=== PATIENT | female | born 1975 | race Caucasian/White ===

== ENCOUNTER 2016-06-01 16:45 | Emergency (ER) | payer OTHER ==
[2016-06-01 16:51] VITALS: TEMP 98.6
--- NOTE | 2016-06-01 16:59 | EDPHY ---
H & P Stated Complaint: c/o migraine x 10 days;d/c'd from [place] yesterday for same c/o Time Seen by Provider: 06/01/16 16:57 - Personal History LMP (Females 10-55): 15-21 Days Ago Current Tetanus Diphtheria and Acellular Pertussis (TDAP): Yes - Medical/Surgical History Other PMH: migraines. ulcers. hives (?etiology) - Social History Smoking Status: Never smoked Constitutional: Initial Vital Signs Temperature (C) 37 C 06/01/16 16:45 Heart Rate 80 06/01/16 16:45 Respiratory Rate 16 06/01/16 16:45 Blood Pressure 128/74 H 06/01/16 16:45 O2 Sat (%) 97 06/01/16 16:45 O2 Delivery Mode Nasal Cannula O2 (L/minute) 2 Allergies/Adverse Reactions: prochlorperazine [From Compazine] Allergy (Intermediate, Verified 06/01/16 16:51 ) "makes me comatose" Home Medications: Medication Instructions Recorded Acyclovir [Zovirax] 800 mg PO 06/01/16 Citalopram [CeleXA] 20 mg PO 06/01/16 Cyclobenzaprine [Cyclobenzaprine 10 mg 06/01/16 HCl] Indomethacin [Indocin 25 mg (*)] 25 mg PO 06/01/16 Lisdexamfetamine Dimesylate 60 mg PO DAILY 06/01/16 [Vyvanse] Pantoprazole Sodium [Protonix 40mg 40 mg PO 06/01/16 (*)] Promethazine HCl [Phenergan 25mg 25 mg PO 06/01/16 (*)] SUMAtriptan [Imitrex 50 MG (*)] 100 mg PO 06/01/16 Sucralfate [Carafate] 1 gm PO 06/01/16 Topiramate [Topamax 100MG (*)] 100 mg PO BID 06/01/16 traZODone [traZODONE 100MG (*)] 200 mg PO 06/01/16 Medical Decision Making ED Course/Re-evaluation: CHIEF COMPLAINT: Migraine HISTORY OF PRESENT ILLNESS: The patient is a 40 y/o female, with a history of migraines, complaining of a persistent migraine over the last 10 days. Her symptoms today are the same as previous, but she has been unable to control the pain. Since onset, she has been to urgent care and the ED in [place]. She had a normal head CT during that visit. She was admitted there overnight for pain symptoms and discharged this morning on an indomethacin taper that initially improved her symptoms. But due to a recent gastric ulcer, she was unable to continue this medication. Her ulcer is thought to be secondary to recent steroid use for undiagnosed hives. She denies weakness, paresthesias, or difficulty with speech. REVIEW OF SYSTEMS: A 10 point review of systems was performed and is negative with the exception of the elements mentioned in the history of present illness. PHYSICAL EXAM: HR, BP, O2 Sat, RR. Temp noted General Appearance: Alert, well hydrated, appropriate, and non-toxic appearing. Head: Atraumatic without scalp tenderness or obvious injury Eyes: Pupils equal, round, reactive to light and accommodation, EOMI, no trauma , no injection. Ears: Clear bilaterally, no perforation, normal landmarks Nose: Atraumatic, no rhinorrhea, clear. Throat: There is no erythema or exudates, no lesions, normal tonsils, mucus membranes moist. Neck: Supple, nontender, no lymphadenopathy. Respiratory: No retractions, no distress, no wheezes, and no accessory muscle use. Lungs are clear to auscultation bilaterally. Cardiovascular: Regular rate and rhythm, no murmurs, rubs, or gallops. Good capillary refill all extremities. Gastrointestinal: Abdomen is soft, nontender, non-distended, no masses, no rebound, no guarding, no peritoneal signs. Musculoskeletal: Normal active ROM of all extremities, atraumatic. Neurological: Alert, appropriate, and interactive. The patient has normal DTRs and non-focal cranial nerves, motor, sensory, and cerebellar exam. Skin: No rashes, good turgor, no nodules on palpation. Past medical history: Migraines, gastric ulcer Past surgical history: denies Family history: noncontributory Social history: Lives in [place] DIAGNOSTICS/PROCEDURES/CRITICAL CARE TIME: I viewed the images myself on the PACS system. 1835: Procedure: Local anesthetic injections Indication: Persistent occipital headache, migraine Risks, benefits, and alternatives discussed with the patient. I prepped a sterile field along patient's posterior cervical region and injected 3cc IM Marcaine to each cervical paraspinous trapezius region. Patient tolerated the procedure well. There was no bleeding, significant pain, or other complications. DIFFERENTIAL DIAGNOSIS: The differential diagnosis for the patient's headache included but was not limited to subarachnoid hemorrhage, migraine headache, tension headache and infectious causes such as meningitis, pharyngitis and sinusitis. MEDICAL DECISION MAKING: This is a 40 y/o female, with a history of migraines, presenting today with a 10 -day history of an intractable migraine. Other than the prolonged time frame, she denies new symptoms from previous migraines. Her neuro exam is normal. Plan for symptom management and MRI studies including arterial and venous angiography to rule out other acute process. IV established. 10mg IV Reglan and 10mg IV Ketamine administered. Due to recent steroids and her gastric ulcer, we will hold on Decadron and Toradol. Reevaluated patient. Her headache has completely resolved, though she feels "loopy" from the Ketamine. Plan to continue observation. MRIs pending. Patient is complaining of an occipital headache. We will try cervical bupivacaine injection for this. 1933: MRA and MRV are negative for acute process per Dr. Prithcett, radiologist. Other studies pending. 1947: Dr. Pritchett reports remaining MRIs are negative. I discussed these results with the patient. Her symptoms are controlled well and she has "zero" headache symptoms at this time. She will be discharged with a script for Propranolol, as she is not currently using any prophylactic medication for her migraines. She should follow up with her neurologist this week. She is comfortable with this plan. Return precautions given. - Data Points Medications Given: Discontinued Medications Ketamine HCl (Ketamine) 10 mg IVP EDNOW ONE Stop: 06/01/16 17:07 Last Admin: 06/01/16 17:34 Dose: 10 mg Lorazepam (Ativan Injection) 1 mg IVP EDNOW ONE Stop: 06/01/16 17:38 Last Admin: 06/01/16 17:39 Dose: 1 mg Metoclopramide HCl (Reglan Injection) 10 mg IVP EDNOW ONE Stop: 06/01/16 17:07 Last Admin: 06/01/16 17:35 Dose: 10 mg Ondansetron HCl (Zofran) 4 mg IVP EDNOW ONE Stop: 06/01/16 17:38 Last Admin: 06/01/16 17:39 Dose: 4 mg Departure - Departure Disposition: Home, Routine, Self-Care Clinical Impression: Migraine Qualifiers: Migraine type: other Status migrainosus presence: with status migrainosus Intractability: not intractable Qualified Code(s): G43.801 - Other migraine, not intractable, with status migrainosus Condition: Good Instructions: Migraine Headache (ED) Additional Instructions: Follow up with your primary care provider or neurologist for symptoms not improved over the next 2-3 days. Return to the ED for worsening of condition. Referrals: CHIVO CALDERA [Primary Care Provider] - As per Instructions Ronny Ulloa DO [Medical Doctor] - As per Instructions Report Scribed for: Evan Laureano Report Scribed by: Maggie Lopez Date of Report: 06/01/16 Time of Report: 17:45
[2016-06-01] MEDS ORDERED: KETAMINE 100 MG/10 ML SYR IVP ONE (17:06)
[2016-06-01] MEDS ORDERED: METOCLOPRAMIDE 10 MG/2 ML VIAL IVP ONE (17:06)
[2016-06-01] MEDS ORDERED: LORazepam 2 MG/ML INJ ONE (17:24)
[2016-06-01] MEDS ORDERED: ONDANSETRON 4 MG/2 ML VIAL ONE (17:29)
[2016-06-01] MEDS ORDERED: LORazepam 2 MG/ML INJ IVP ONE (17:37)
[2016-06-01] MEDS ORDERED: ONDANSETRON 4 MG/2 ML VIAL IVP ONE (17:37)
[2016-06-01] MEDS ORDERED: GADOBUTROL 10 ML VIAL IVP ONE (19:16)
[2016-06-01 20:02] VITALS: BP 112/75; PULSE 85; RESP 16; O2SAT 97
== END 2016-06-01 20:05 | disposition home or self-care (01) ==
DX: G43.801 Other migraine, not intractable, with status migrainosus (principal)
CPT/HCPCS: 96374; A9585; J2060; J2405; J2765

== ENCOUNTER 2016-06-19 12:50 | Emergency (ER) | payer OTHER ==
[2016-06-19 13:07] VITALS: BP 122/74; TEMP 98.1
[2016-06-19] MEDS ORDERED: HALOPERIDOL LACT 5 MG/ML INJ IV ONE (13:49)
[2016-06-19] MEDS ORDERED: LORazepam 2 MG/ML INJ IVP ONE (13:49)
[2016-06-19] MEDS ORDERED: NS 1,000 ML IV ONE (13:50)
--- NOTE | 2016-06-19 13:53 | EDPHY ---
H & P Time Seen by Provider: 06/19/16 13:35 HPI/ROS: CHIEF COMPLAINT: HISTORY OF PRESENT ILLNESS: Patient was seen in the emergency department on 06/01 with MRI and MRV negative. She has a long history of migraine headaches and has a neurologist Dr. Neumann at [place]. Patient's headache this time is her typical migraine. It was slow in onset started 3 days ago. It is right-sided does not radiate not affected by light and noise. It is associated with nausea and is identical to previous migraines. She tried her usual medications including Imitrex and promethazine without resolution. Patient says Toradol does not work. Note from her neurologist reviewed which recommends trying droperidol or haloperidol and this was discussed with the patient and consented. REVIEW OF SYSTEMS: Eye: Light bothers the eyes but no double vision ENT: no sore throat or ear symptoms Cardiac: no chest pain or syncope Pulmonary: no cough or SOB Abdomen: No diarrhea or abdominal pain Musculoskeletal: no back pain Skin: no rash Neuro: HPI, no confusion or recent injury Constitutional: no fever : no urinary symptoms A comprehensive 10 point review of systems is otherwise negative aside from elements mentioned in the history of present illness. PAST MEDICAL HISTORY: History of migraine headaches. Gastric ulcer. History of hives for the last couple of months Social history: Here with her mother, no drug abuse General Appearance: Alert and conversant, cooperative. Eyes: No scleral icterus. Pupils equal round reactive and extraocular motion is intact ENT, Mouth: Normal mucous membranes. Normal pharynx, no facial swelling or tenderness. Respiratory: Normal respiratory effort, breath sounds equal, lungs are clear to auscultation. Cardiovascular: Regular rate and rhythm. Gastrointestinal: Abdomen is soft and non tender. Neurological: Alert and oriented x3. Normally conversant. Face symmetric, normal movement and sensation in all extremities. No pronator drift and normal [id number] bilaterally Skin: Warm and dry, no rashes. Musculoskeletal: Normal range of the motion of the neck without meningeal signs. Psychiatric: Not agitated. Emergency Department course/MDM: Haloperidol 2.5mg, Ativan 1mg, and Benadryl 50mg discussed and consented. 1510: Awakened from sleep. "How's your headache?"; "Its fine." Stable for discharge, improved. Smoking Status: Never smoked Constitutional: Initial Vital Signs Temperature (C) 36.7 C 06/19/16 13:04 Heart Rate 81 06/19/16 13:04 Respiratory Rate 20 06/19/16 13:04 Blood Pressure 122/74 H 06/19/16 13:04 O2 Sat (%) 100 06/19/16 13:04 O2 Delivery Mode Room Air Allergies/Adverse Reactions: prochlorperazine [From Compazine] Allergy (Intermediate, Verified 06/19/16 13:02 ) "makes me comatose" Home Medications: Medication Instructions Recorded Acyclovir [Zovirax] 800 mg PO 06/01/16 Citalopram [CeleXA] 20 mg PO 06/01/16 Cyclobenzaprine [Cyclobenzaprine 10 mg 06/01/16 HCl] Promethazine HCl [Phenergan 25mg 25 mg PO 06/01/16 (*)] Propranolol HCl 20 mg PO BID #60 tablet 06/01/16 SUMAtriptan [Imitrex 50 MG (*)] 100 mg PO 06/01/16 Sucralfate [Carafate] 1 gm PO 06/01/16 Topiramate [Topamax 100MG (*)] 100 mg PO BID 06/01/16 traZODone [traZODONE 100MG (*)] 200 mg PO 06/01/16 Hydroxyzine HCl 06/19/16 diphenhydrAMINE 06/19/16 Medical Decision Making - Diagnostics EKG Interpretation: 12-lead EKG interpreted by me; official reading is in trace master. My interpretation is sinus rhythm rate 71 normal intervals. Differential Diagnosis: Differential diagnosis considered for headache including but not limited to subarachnoid hemorrhage, migraine headache, tension headache and infectious causes such as meningitis, pharyngitis and sinusitis. Patient does not have meningeal signs and negative imaging recently. I think most likely recurrent migraine. - Data Points Medications Given: Discontinued Medications Diphenhydramine HCl (Benadryl Injection) 50 mg IVP EDNOW ONE Stop: 06/19/16 13:51 Last Admin: 06/19/16 14:06 Dose: 50 mg Haloperidol Lactate (Haldol Injection) 2.5 mg IV EDNOW ONE Stop: 06/19/16 13:50 Last Admin: 06/19/16 14:06 Dose: 2.5 mg Sodium Chloride (Ns) 1,000 mls @ 0 mls/hr IV ONCE ONE PRN Reason: Wide Open Stop: 06/19/16 13:51 Last Admin: 06/19/16 14:06 Dose: 1,000 mls Lorazepam (Ativan Injection) 1 mg IVP EDNOW ONE Stop: 06/19/16 13:50 Last Admin: 06/19/16 14:06 Dose: 1 mg Departure - Departure Disposition: Home, Routine, Self-Care Clinical Impression: Migraine headache Qualifiers: Migraine type: unspecified Status migrainosus presence: without status migrainosus Intractability: not intractable Qualified Code(s): G43.909 - Migraine, unspecified, not intractable, without status migrainosus Condition: Good Instructions: Migraine Headache (ED) Referrals: CHIVO CALDERA [Primary Care Provider] - As per Instructions Bridget Neumann MD [Medical Doctor] - As per Instructions
--- NOTE | 2016-06-19 14:46 | CPEKG ---
Heart Rate: 71 RR Interval: 845 P-R Interval: 140 QRSD Interval: 100 QT Interval: 432 QTC Interval: 470 P Sunbury: 25 QRS Sunbury: 86 T Wave Sun[place]: 65 EKG Severity - NORMAL ECG - EKG Impression: SINUS RHYTHM Electronically Signed By: Adonis White 19-Jun-2016 17:07:58
[2016-06-19 15:29] VITALS: PULSE 76; RESP 16; O2SAT 99
== END 2016-06-19 15:28 | disposition home or self-care (01) ==
DX: G43.909 Migraine, unspecified, not intractable, without status migrainosus (principal)
CPT/HCPCS: 96374; J1200; J2060

== ENCOUNTER 2016-06-26 15:25 | Emergency (ER) | payer OTHER ==
[2016-06-26 15:32] VITALS: RESP 16
--- NOTE | 2016-06-26 15:49 | EDPHY ---
H & P Stated Complaint: chronic migraines/seen last week - Personal History LMP (Females 10-55): 1-7 Days Ago Current Tetanus/Diphtheria Vaccine: Yes - Medical/Surgical History Hx Asthma: No Hx Chronic Respiratory Disease: No Hx Diabetes: No Hx Cardiac Disease: No Hx Renal Disease: No Hx Cirrhosis: No Hx Alcoholism: No Hx HIV/AIDS: No Hx Splenectomy or Spleen Trauma: No Other PMH: migraines. ulcers. hives (?etiology) - Social History Smoking Status: Never smoked Time Seen by Provider: 06/26/16 15:37 HPI/ROS: CHIEF COMPLAINT: "Migraine headache" HISTORY OF PRESENT ILLNESS: 40-year-old female history a chronic migraine headache arrives via private vehicle complaining of migraine headache for the past 4 days. Feels similar to her usual migraine headaches which she has had evaluation, has been seen by a neurologist Dr. Neumann in [place], has had MRA MRV studies as recently as 06/01/2016 at [facility] both which were negative and has prior emergency department visits for same. She had an appointment with neurologist Dr. Ronny Ulloa this morning at which when she received trigger point injections in the occipital region which provided minimal relief of symptoms. The headache was slow in onset, not thunderclap, worsened by light and noise with associated nausea, identical to previous migraines. No recent head injury. No neck pain. No fever or chills. No flu- like symptoms. No sore throat. REVIEW OF SYSTEMS: A ten point review of systems was performed and is negative with the exception of the items mentioned in the HPI PAST MEDICAL & SURGICAL HISTORY: Chronic migraine SOCIAL HISTORY: Nonsmoker PHYSICAL EXAM (Prior to examination, patient consented to physical exam, hands were washed and my usual and customary physical exam procedures followed) 1) GENERAL: Well-developed, well-nourished, alert and oriented. Appears uncomfortable, sitting in a darkened room with her eyes covered. 2) HEAD: Normocephalic, atraumatic 3) HEENT: Pupils equal, round, reactive to light bilaterally. Positive photophobia 4) NECK: Full range of motion, no meningeal signs. 5) LUNGS: Clear auscultation bilaterally, no wheezes, no rhonchi, no retractions. 6) HEART: Regular rate and rhythm, no murmur, no heave, no gallop. 7) ABDOMEN: No guarding, no rebound, no focal tendernessn, 8) MUSCULOSKELETAL: No peripheral edema or discoloration. 9) BACK: no visual or palpable abnormality. 10) SKIN: No rash, no petechiae. 11) Psychiatric: Patient is oriented X 3, there is no agitation. 12) NEURO: Awake, alert, and oriented to person, place and time. Answers questions appropriately. There were no obvious focal neurologic abnormalities. No cerebellar dysfunction. Normal steady gait. Upper and lower extremities bilaterally with strength 5 / 5, reflexes 2+. DIFFERENTIAL DIAGNOSIS:In no particular order, including but not limited to subarachnoid hemorrhage, migraine headache,CVT, tension headache and infectious causes such as meningitis, pharyngitis and sinusitis. (Mariola Osei) Constitutional: Initial Vital Signs Temperature (C) 36.6 C 06/26/16 15:30 Heart Rate 72 06/26/16 15:30 Respiratory Rate 16 06/26/16 15:30 Blood Pressure 115/67 06/26/16 15:30 O2 Sat (%) 98 06/26/16 15:30 O2 Delivery Mode Room Air Allergies/Adverse Reactions: prochlorperazine [From Compazine] Allergy (Intermediate, Verified 06/26/16 15:27 ) "makes me comatose" Home Medications: Medication Instructions Recorded Acyclovir [Zovirax] 800 mg PO 06/01/16 Citalopram [CeleXA] 20 mg PO 06/01/16 Cyclobenzaprine [Cyclobenzaprine 10 mg 06/01/16 HCl] Promethazine HCl [Phenergan 25mg 25 mg PO 06/01/16 (*)] SUMAtriptan [Imitrex 50 MG (*)] 100 mg PO 06/01/16 Topiramate [Topamax 100MG (*)] 100 mg PO BID 06/01/16 traZODone [traZODONE 100MG (*)] 200 mg PO 06/01/16 Citalopram 06/26/16 Cyclobenzaprine 06/26/16 Medical Decision Making ED Course/Re-evaluation: 3:49 p.m.: Via the patient's medical records she notes that the emergency department visit dated 06/01/2016 receive received combination of ketamine Ativan Reglan and Zofran was the most effective at alleviating her symptoms. 4:30 p.m.: Patient informs me she has continued pain, no change in pain. We discussed Toradol which she declines stating that "that never works". We discussed opiates and the risks and benefits including rebound headaches headaches. Opiates were not used as a first-line therapy however she has continued pain I think a second-line therapy of opiates is appropriate. Will administer IV opiate. discussed case with Dr Ortega in ER. 5:00 p.m.: Phone consultation with Dr. Foy on-call for Dr. Ronny Ulloa. Dr. Christina recommended valproic acid 500 mg IV, IV Decadron, IV magnesium and reassess. 7 p.m.: Re-evaluation. She notes pain which is only decreased mildly. Valproic acid continuing to infuse at this time. She does note some relief previously with hydromorphone. 7:30 pm: Care transferred to Dr. Ricardo Ortega at this time (Mariola Osei) Other Provider: I evaluated and participated in the management of the patient. I also evaluated the patient independently. My co-signature indicates that I have reviewed this chart and I agree with the findings and plan of care as documented. My personal H&P findings include: The patient presents to the ED with a typical migraine headache. The patient has had extensive workup by Neurology and extensive neuro imaging. The patient received multiple medications in the emergency department. Consultation was made with the on-call neurologist who recommends nonnarcotic medications. This was attempted without success. The patient received 2 IV doses of narcotic medications. I re-evaluated the patient at 8:15 p.m.. The patient still complains of an home ongoing headache which feels as if it is manageable. At this point time I do not feel that hospital admission is indicated or in the patient's best interest. I would like her to follow up with her regular neurologist Dr. Ronny Ulloa tomorrow. (Ricardo Ortega) - Data Points Medications Given: Discontinued Medications Dexamethasone (Decadron Injection) 10 mg IVP EDNOW ONE Stop: 06/26/16 17:02 Last Admin: 05/01/17 17:37 Dose: 10 mg Hydromorphone HCl (Dilaudid) 1 mg IVP EDNOW ONE Stop: 06/26/16 16:31 Last Admin: 06/26/16 17:36 Dose: 1 mg Hydromorphone HCl (Dilaudid) 1 mg IVP EDNOW ONE Stop: 06/26/16 19:14 Last Admin: 06/26/16 19:30 Dose: 1 mg Valproate Sodium 500 mg/ (Dextrose) 55 mls @ 55 mls/hr IV EDNOW ONE Stop: 06/26/16 18:01 Last Admin: 06/26/16 18:35 Dose: 55 mls Magnesium Sulfate/Dextrose (Magnesium Sulf 1 Gm (Premix)) 100 mls @ 100 mls/hr IV EDNOW ONE Stop: 06/26/16 18:02 Last Admin: 06/26/16 17:37 Dose: 100 mls Ketamine HCl (Ketamine) 10 mg IVP EDNOW ONE Stop: 06/26/16 15:54 Last Admin: 06/26/16 16:15 Dose: 10 mg Lorazepam (Ativan Injection) 1 mg IVP EDNOW ONE Stop: 06/26/16 15:54 Last Admin: 06/26/16 16:16 Dose: 1 mg Metoclopramide HCl (Reglan Injection) 10 mg IVP EDNOW ONE Stop: 06/26/16 15:54 Last Admin: 06/26/16 16:16 Dose: 10 mg Ondansetron HCl (Zofran) 4 mg IVP EDNOW ONE Stop: 06/26/16 19:14 Last Admin: 06/26/16 19:30 Dose: 4 mg Departure - Departure Disposition: Home, Routine, Self-Care Clinical Impression: Headache Condition: Good Instructions: Acute Headache (ED) Additional Instructions: 1. Please follow up with your regular neurologist tomorrow to discuss ongoing treatment options for your migraine headache. Referrals: Ronny Ulloa DO [Medical Doctor] - As per Instructions
[2016-06-26] MEDS ORDERED: KETAMINE 100 MG/10 ML SYR IVP ONE (15:53)
[2016-06-26] MEDS ORDERED: METOCLOPRAMIDE 10 MG/2 ML VIAL IVP ONE (15:53)
[2016-06-26] MEDS ORDERED: LORazepam 2 MG/ML INJ IVP ONE (15:53)
[2016-06-26] MEDS ORDERED: HYDROmorphONE/DILAUDID 1 MG/ML SYR IVP ONE ×2 (16:30→19:13)
[2016-06-26] MEDS ORDERED: DEXAMETHASONE 10 MG/ML VIAL IVP ONE (17:01)
[2016-06-26] MEDS ORDERED: VALPROATE SODIUM 500 MG in D5W 50 ML IV ONE (17:02)
[2016-06-26] MEDS ORDERED: MAGNESIUM SULF 1 GM/DEXTROSE 100 ML IV ONE (17:03)
[2016-06-26] MEDS ORDERED: ONDANSETRON 4 MG/2 ML VIAL IVP ONE (19:13)
[2016-06-26 20:29] VITALS: BP 114/60; PULSE 72; TEMP 98.6; O2SAT 94
== END 2016-06-26 20:29 | disposition home or self-care (01) ==
DX: R51 Headache (principal)
CPT/HCPCS: 96365; J1170; J2060; J2405; J2765; J3475

== ENCOUNTER 2016-08-24 19:24 | Emergency (ER) | payer OTHER ==
--- NOTE | 2016-08-24 20:18 | EDPHY ---
H & P Stated Complaint: pt just seen at [facility] ER, d/c with trigeminal nerver pain, pain is worse Time Seen by Provider: 08/24/16 20:18 - Personal History LMP (Females 10-55): Now Current Tetanus Diphtheria and Acellular Pertussis (TDAP): Yes - Medical/Surgical History Hx Asthma: No Hx Chronic Respiratory Disease: No Hx Diabetes: No Hx Cardiac Disease: No Hx Renal Disease: No Hx Cirrhosis: No Hx Alcoholism: No Hx HIV/AIDS: No Hx Splenectomy or Spleen Trauma: No Other PMH: migraines, trigiminal neuralgia. ulcers. hives (?etiology) - Social History Smoking Status: Former smoker Constitutional: Initial Vital Signs Temperature (C) 36.8 C 08/24/16 19:37 Heart Rate 74 08/24/16 19:37 Respiratory Rate 18 08/24/16 19:37 Blood Pressure 94/55 L 08/24/16 19:37 O2 Sat (%) 98 08/24/16 19:37 O2 Delivery Mode Room Air Allergies/Adverse Reactions: prochlorperazine [From Compazine] Allergy (Intermediate, Verified 06/26/16 15:27 ) "makes me comatose" Home Medications: Medication Instructions Recorded Acyclovir [Zovirax] 800 mg PO 06/01/16 Citalopram [CeleXA] 20 mg PO 06/01/16 Cyclobenzaprine [Cyclobenzaprine 10 mg 06/01/16 HCl] Promethazine HCl [Phenergan 25mg 25 mg PO 06/01/16 (*)] SUMAtriptan [Imitrex 50 MG (*)] 100 mg PO 06/01/16 Topiramate [Topamax 100MG (*)] 100 mg PO BID 06/01/16 traZODone [traZODONE 100MG (*)] 200 mg PO 06/01/16 Citalopram 06/26/16 Cyclobenzaprine 06/26/16 Valium 08/24/16 Medical Decision Making ED Course/Re-evaluation: CHIEF COMPLAINT: Trigeminal neuralgia HISTORY OF PRESENT ILLNESS: The patient is a 40 y/o female with a history of trigeminal neuralgia complaining of severe facial pain worsening over the past few days. She describes right side "electric shooting" occipital pain that radiates to her forehead. Her pain begins to ramp up in the mornings and is then generally intermittent through the day, but has become much more severe over the past several weeks. She has had recent extensive imaging to rule out other acute causes of her symptoms. During her visit here in May, IV Ketamine and Reglan and occipital injections improved her pain significantly. REVIEW OF SYSTEMS: A 10 point review of systems was performed and is negative with the exception of the elements mentioned in the history of present illness. PHYSICAL EXAM: HR, BP, O2 Sat, RR. Temp noted General Appearance: Alert, well hydrated, appropriate, very uncomfortable- appearing. Head: Atraumatic without scalp tenderness or obvious injury Eyes: Pupils equal, round, reactive to light and accommodation, EOMI, no trauma , no injection. Ears: Clear bilaterally, no perforation, normal landmarks Nose: Atraumatic, no rhinorrhea, clear. Throat: There is no erythema or exudates, no lesions, normal tonsils, mucus membranes moist. Neck: Supple, nontender, no lymphadenopathy. Respiratory: No retractions, no distress, no wheezes, and no accessory muscle use. Lungs are clear to auscultation bilaterally. Cardiovascular: Regular rate and rhythm, no murmurs, rubs, or gallops. Good capillary refill all extremities. Gastrointestinal: Abdomen is soft, nontender, non-distended, no masses, no rebound, no guarding, no peritoneal signs. Musculoskeletal: Normal active ROM of all extremities, atraumatic. Neurological: Alert, appropriate, and interactive. Nonfocal neuro exam. Skin: No rashes, good turgor, no nodules on palpation. Past medical history: Trigeminal neuralgia, occipital migraines, gastric ulcer Past surgical history: denies Family history: noncontributory Social history: Family member at bedside Prior medical records reviewed including ED visit May 2016 for the same symptoms. DIAGNOSTICS/PROCEDURES/CRITICAL CARE TIME: 1835: Procedure: Local anesthetic injections Indication: Persistent occipital headache, trigeminal neuralgia Risks, benefits, and alternatives discussed with the patient. I prepped a sterile field along patient's posterior cervical region and injected 3cc IM 50% Marcaine with epi and 50% Lidocaine with epi to each cervical paraspinous trapezius region. Patient tolerated the procedure well. There was no bleeding, significant pain, or other complications. DIFFERENTIAL DIAGNOSIS: The differential diagnosis for the patient's headache included but was not limited to trigeminal neuralgia, subarachnoid hemorrhage, migraine headache, tension headache and infectious causes such as meningitis, pharyngitis and sinusitis. MEDICAL DECISION MAKING: This is a 40 y/o female with a history of trigeminal neuralgia who presents with severe facial pain typical for her occipital migraines and neuralgia. She is only requesting symptom management and no further work up. 10mg IV Reglan and 5mg IV Ketamine and cervical anesthetic injections performed for symptom management. Patient had improvement in pain within 2 minutes of administration. 2150: Reassessed patient. She is sleepy soundly. Reassessed patient. She is feeling significantly improved and ready for discharge home. Return precautions given. She will follow up with her specialist as needed. She is comfortable with this plan. 1105: This patient says she feels much much better and would like to go home at this point. She has a doctor appointment tomorrow. Her is comfortable and she is comfortable. - Data Points Medications Given: Discontinued Medications Sodium Chloride (Ns) 1,000 mls @ 0 mls/hr IV ONCE ONE PRN Reason: Wide Open Stop: 08/24/16 21:21 Last Admin: 08/24/16 21:22 Dose: 1,000 mls Ketamine HCl (Ketamine) 5 mg IVP EDNOW ONE Stop: 08/24/16 21:21 Last Admin: 08/24/16 21:21 Dose: 5 mg Metoclopramide HCl (Reglan Injection) 10 mg IVP EDNOW ONE Stop: 08/24/16 21:21 Last Admin: 08/24/16 21:21 Dose: 10 mg Departure - Departure Disposition: Home, Routine, Self-Care Clinical Impression: Trigeminal neuralgia Condition: Fair Instructions: Trigeminal Neuralgia (ED) Additional Instructions: Follow up with your specialist as needed for continued symptoms. Return to the ED for any worsening of condition. Referrals: CHIVO CALDERA [Primary Care Provider] - As per Instructions Report Scribed for: Evan Laureano Report Scribed by: Maggie Lopez Date of Report: 08/24/16 Time of Report: 21:25
[2016-08-24] MEDS ORDERED: KETAMINE 100 MG/10 ML SYR ONE (21:10)
[2016-08-24] MEDS ORDERED: METOCLOPRAMIDE 10 MG/2 ML VIAL ONE (21:11)
[2016-08-24] MEDS ORDERED: METOCLOPRAMIDE 10 MG/2 ML VIAL IVP ONE (21:20)
[2016-08-24] MEDS ORDERED: NS 1,000 ML IV ONE (21:20)
[2016-08-24] MEDS ORDERED: KETAMINE 100 MG/10 ML SYR IVP ONE (21:20)
[2016-08-24 22:07] VITALS: RESP 16
[2016-08-24] MEDS ORDERED: KETAMINE 500 MG/10 ML VIAL IVP ONE (22:32)
[2016-08-24] MEDS ORDERED: OXYCODONE/APAP 5/325MG PREPACK#4 BTL TAKEHOME ONE (22:38)
[2016-08-24 23:15] VITALS: BP 104/63; PULSE 66; TEMP 97.9; O2SAT 96
== END 2016-08-24 23:15 | disposition home or self-care (01) ==
DX: G50.0 Trigeminal neuralgia (principal)
CPT/HCPCS: 96374; J2765